=== PATIENT | female | born 2000 | race Two or more races ===

== ENCOUNTER 2019-12-01 15:51 | Emergency (ER) | payer OTHER ==
[2019-12-01 16:20] VITALS: BMI 23.8
[2019-12-01] MEDS ORDERED: ACETAMINOPHEN 500 MG TABLET (FP) PO ONE (17:13)
[2019-12-01] MEDS ORDERED: LACTATED RINGERS SOLUTION 1000 ML INFUS.BAG IV ONE (17:14)
[2019-12-01] MEDS ORDERED: ACETAMINOPHEN INJECTION 100 ML IVPB ONE (17:17)
[2019-12-01] MEDS ORDERED: ACETAMINOPHEN 1000 MG/100 ML VIAL (NON FORMULARY) IVPB ONE (17:20)
--- NOTE | 2019-12-01 17:37 | PDOC ---
History of Present Illness - General Chief Complaint: Lightheaded Stated Complaint: LIGHTHEADED Time Seen by Provider: 12/01/19 16:36 History Source: Patient Exam Limitations: No Limitations - History of Present Illness Initial Comments: 12/01/19 17:32 HISTORY OF PRESENT ILLNESS: 19-year-old woman is currently 16 weeks gestation, primigravida, who presents to the emergency department for evaluation of nausea vomiting and left flank pain. Patient reports she been feeling mildly dizzy which she describes as a room spinning sensation. She reports the dizziness has been intermittent denies presently. Patient endorses having mild dysuria over the past 2 weeks. She denies any vaginal bleeding or vaginal discharge. She denies fevers, chills. No recent travel or sick contacts. PAST MEDICAL HISTORY: Denies past medical history SURGICAL HISTORY: Denies ALLERGIES: No known drug allergies REVIEW OF SYSTEMS General/Constitutional: Denies fever or chills. Denies weakness, weight change. HEENT: Denies change in vision. Denies ear pain or discharge. Denies sore throat. Cardiovascular: Denies chest pain or shortness of breath. Respiratory: Denies cough, wheezing, or hemoptysis. Gastrointestinal: Denies nausea, vomiting, diarrhea or constipation. Denies rectal bleeding. Genitourinary: See HPI Musculoskeletal: Denies joint or muscle swelling or pain. Denies neck or back pain. Skin and breasts: Denies rash or easy bruising. Neurologic: See HPI Psychiatric: Denies depression or anxiety. Endocrine: Denies increased thirst. Denies abnormal weight change. Hematologic/Lymphatic: Denies anemia, easy bleeding, or history of blood clots. Allergic/Immunologic: Denies hives or skin allergy. Denies latex allergy. PHYSICAL EXAM General Appearance: Well-appearing, appropriately dressed. No apparent distress, no intoxication. HEENT: EOMI, PERRLA, normal ENT inspection, normal voice, TMs normal, pharynx normal. No conjunctival pallor. No photophobia, scleral icterus. Respiratory/Chest: Lungs CTAB. No shortness of breath, chest tenderness, respiratory distress, accessory muscle use. No crackles, rales, rhonchi, stridor, wheezing, dullness Cardiovascular: RRR. S1, S2. No JVD, murmur, bradycardia, tachycardia. Gastrointestinal/Abdominal: Normal bowel sounds. Gravid abdomen. No pulsatile mass, guarding, hernia, hepatomegaly, splenomegaly. Musculoskeletal/Extremities: Normal inspection. FROM of all extremities, normal capillary refill. Pelvis Stable. No CVA tenderness. No tenderness to extremities, pedal edema, swelling, erythema or deformity. Neurologic: law secretary II-XII intact. Fully oriented, alert. Appropriate mood/affect. Motor strength 5/5. No appreciable EOM palsy, facial droop or sensory deficit. Normal finger-nose testing. Steady gait. Past History - Medical History Allergies/Adverse Reactions: Allergies Allergy/AdvReac Type Severity Reaction Status Date / Time No Known Allergies Allergy Verified 12/01/19 16:15 Home Medications: Ambulatory Orders Cephalexin Monohydrate [Keflex -] 500 mg PO Q8H #30 capsule 12/01/19 - Reproductive History Is Patient Now?: No - Psycho-Social/Smoking History Smoking History: Never smoked Have you smoked in the past 12 months: No Information on smoking cessation initiated: No - Substance Abuse Hx (Audit-C & DAST Scrn) How often the patient has a drink containing alcohol: Never Score: In Men: 4 or > Positive; In Women: 3 or > Positive: 0 Screen Result (Pos requires Nsg. Audit-10AR): Negative *Physical Exam - Vital Signs Last Vital Signs Temp Pulse Resp BP Pulse Ox 97.8 F 95 H 17 108/67 99 12/01/19 16:15 12/01/19 16:15 12/01/19 16:15 12/01/19 16:15 12/01/19 16:15 ED Treatment Course - LABORATORY CBC & Chemistry Diagram: 12/01/19 17:30 12/01/19 17:30 - RADIOLOGY Radiology Studies Ordered: Category Date Time Status KIDNEY / RENAL US [US] Stat Ultrasound 12/01/19 17:12 Ordered US(SINGLE) [US] Stat Ultrasound 12/01/19 17:12 Ordered - Medications Given in the ED: ED Medications Discontinued Medications Generic Name Dose Route Start Last Admin Trade Name Freq PRN Reason Stop Dose Admin Acetaminophen 975 mg 12/01/19 17:13 12/01/19 17:30 Tylenol - PO 12/01/19 17:14 Not Given ONCE ONE Acetaminophen 1,000 mg 12/01/19 17:20 12/01/19 17:28 Ofirmev Injection - IVPB 12/01/19 17:21 1,000 mg ONCE ONE Administration Lactated Ringer's 1,000 ml 12/01/19 17:14 12/01/19 17:28 Lactated Ringers Solution IV 12/01/19 17:15 1,000 ml ONCE ONE Administration Medical Decision Making - Medical Decision Making 12/01/19 17:34 A/P: 19-year-old woman with left flank pain, nausea, vomiting and dizziness in second trimester of Physical exam is unremarkable Differential diagnosis includes but is not limited to: Pyelonephritis, dehydration, vertigo Labs Urinalysis, urine culture Normal saline 1 L IV bolus Tylenol 1 g IV Obstetrics ultrasound Kidney ultrasound Reassess 12/01/19 19:04 Laboratory Tests 12/01/19 12/01/19 12/01/19 17:30 17:30 18:30 WBC 13.6 H RBC 3.63 Hgb 11.2 Hct 32.4 MCV 89.1 MCH 30.7 MCHC 34.5 RDW 13.2 Plt Count 138 MPV 9.3 Absolute Neuts (auto) 11.3 H Neutrophils % 83.2 H Lymphocytes % 10.7 Monocytes % 4.8 Eosinophils % 1.0 Basophils % 0.3 Nucleated RBC % 0 Platelet Estimate Decreased Platelet Comment No clumping noted Sodium 136 Potassium 5.2 H Chloride 107 Carbon Dioxide 23 Anion Gap 5 L BUN 8.3 Creatinine 0.5 L Est GFR (CKD-EPI)AfAm 161.48 Est GFR (CKD-EPI)NonAf 139.32 Random Glucose 87 Calcium 9.1 Total Bilirubin 0.2 AST 38 H ALT 18 Alkaline Phosphatase 70 Total Protein 7.0 Albumin 3.1 L Urine HCG, Qual Positive Renal ultrasound with minimal right hydronephrosis without obvious calculi. Unremarkable left kidney. Limited ultrasound reveals single live IUP with gestational age 17 weeks with heart rate 139. No abnormalities are noted. Urinalysis pending. 12/01/19 19:26 Laboratory Tests 12/01/19 12/01/19 12/01/19 17:30 17:30 18:20 WBC 13.6 H RBC 3.63 Hgb 11.2 Hct 32.4 MCV 89.1 MCH 30.7 MCHC 34.5 RDW 13.2 Plt Count 138 MPV 9.3 Absolute Neuts (auto) 11.3 H Neutrophils % 83.2 H Lymphocytes % 10.7 Monocytes % 4.8 Eosinophils % 1.0 Basophils % 0.3 Nucleated RBC % 0 Platelet Estimate Decreased Platelet Comment No clumping noted Sodium 136 Potassium 5.2 H Chloride 107 Carbon Dioxide 23 Anion Gap 5 L BUN 8.3 Creatinine 0.5 L Est GFR (CKD-EPI)AfAm 161.48 Est GFR (CKD-EPI)NonAf 139.32 Random Glucose 87 Calcium 9.1 Total Bilirubin 0.2 AST 38 H ALT 18 Alkaline Phosphatase 70 Total Protein 7.0 Albumin 3.1 L Urine Color Yellow Urine Appearance Clear Urine pH 6.0 Ur Specific [place] 1.017 Urine Protein Negative Urine Glucose (UA) Negative Urine Ketones Negative Urine Blood Negative Urine Nitrite Negative Urine Bilirubin Negative Urine Urobilinogen 0.2 Ur Leukocyte Esterase 1+ H Urine WBC (Auto) 45 Urine RBC (Auto) 2 Urine Casts (Auto) 1 U Epithel Cells (Auto) 16 Urine Bacteria (Auto) 94 Urine HCG, Qual 12/01/19 18:30 WBC RBC Hgb Hct MCV MCH MCHC RDW Plt Count MPV Absolute Neuts (auto) Neutrophils % Lymphocytes % Monocytes % Eosinophils % Basophils % Nucleated RBC % Platelet Estimate Platelet Comment Sodium Potassium Chloride Carbon Dioxide Anion Gap BUN Creatinine Est GFR (CKD-EPI)AfAm Est GFR (CKD-EPI)NonAf Random Glucose Calcium Total Bilirubin AST ALT Alkaline Phosphatase Total Protein Albumin Urine Color Urine Appearance Urine pH Ur Specific [place] Urine Protein Urine Glucose (UA) Urine Ketones Urine Blood Urine Nitrite Urine Bilirubin Urine Urobilinogen Ur Leukocyte Esterase Urine WBC (Auto) Urine RBC (Auto) Urine Casts (Auto) U Epithel Cells (Auto) Urine Bacteria (Auto) Urine HCG, Qual Positive Urinalysis suggestive of infection. Will treat patient for pyelonephritis with Keflex 500 mg 3 times daily for the next 10 days. I discussed the physical exam findings, ancillary test results and final diagnoses with the patient. I answered all of the patient's questions. The patient was satisfied with the care received and felt comfortable with the discharge plan and treatment plan. The patient will call their primary care physician within 24 hours to arrange follow-up and will return to the Emergency Department with any new, persistent or worsening symptoms. Portions of this note have been documented using voice recognition software. As a result, errors may occur in the capacitor assembler process. Effort has been made to correct all grammatical and capacitor assembler error, but some may have been missed which may produce sporadic inaccurate capacitor assembler or nonsensical phrases. Discharge - Discharge Information Problems reviewed: Yes Clinical Impression/Diagnosis: Pyelonephritis affecting Qualifiers: Trimester: second trimester Qualified Code(s): O23.02 - Infections of kidney in , second trimester Condition: Fair Disposition: HOME - Admission No - Additional Discharge Information Prescriptions: Cephalexin Monohydrate [Keflex -] 500 mg PO Q8H #30 capsule - Follow up/Referral - Patient Discharge Instructions Additional Instructions: Rest, drink lots of fluids: Teas, water, soups Avoid contact with others until fevers and symptoms resolved Lots of handwashing and good hygiene Continue [id number] medications for symptomatic relief Tylenol for fever and pain Continue all of antibiotics until completed Followup with private physician in one week for repeat urinalysis/reevaluation Return to emergency department for worsened symptoms, fevers, dehydration gamaliel Howell muchos lquidos: Ts, agua, sopas Evite el contacto con otros hasta que las fiebres y los sntomas se resuelvan Un montn de lavado de ki y buena higiene Contine los medicamentos sin receta para el alivio sintomtico Tylenol para la fiebre y el dolor Continuar todos los antibiticos hasta completarse Seguimiento con mdico privado en allan semana para repetir anlisis de orina / reevaluacin Volver al servicio de urgencias por sntomas empeorados, fiebres, deshidratacin - Post Discharge Activity
[2019-12-01 17:46] VITALS: BP 110/59; PULSE 91; TEMP 97.9
[2019-12-01 18:36] LABS: ALBUMIN 3.1 g/dl (3.4-5.0); BILIRUBIN,TOTAL 0.2 mg/dL (0.2-1); BLOOD UREA NITROGEN 8.3 mg/dL (7-18); CALCIUM 9.1 mg/dL (8.5-10.1); CREATININE 0.5 mg/dL (0.55-1.3); POTASSIUM 5.2 mmol/L (3.5-5.1)
[2019-12-01 18:37] LABS: BASO % 0.3 % (0-2.0); HEMATOCRIT 32.4 % (32.4-45.2); HEMOGLOBIN 11.2 GM/dL (10.7-15.3); LYMPH % 10.7 % (8-40); MCH 30.7 pg (25.7-33.7); MCHC 34.5 g/dl (32.0-36.0); MEAN CELL VOLUME 89.1 fl (80-96); MEAN PLT VOLUME 9.3 fl (7.5-11.1); MONO % 4.8 % (3.8-10.2); NEUT % 83.2 % (42.8-82.8); PLATELET COUNT 138 K/MM3 (134-434); PLATELET ESTIMATE DECREASED; RBC 3.63 M/mm3 (3.60-5.2); RDW 13.2 % (11.6-15.6); WHITE BLOOD COUNT 13.6 K/mm3 (4.0-10.0)
[2019-12-01 19:20] LABS: EPI CELLS 16 /uL (0-25.1); HYALINE CASTS 1 /uL (0-3.1); URINE APPEARANCE CLEAR; URINE BACTERIA 94 /uL (0-1359); URINE BILIRUBIN NEGATIVE (NEGATIVE); URINE COLOR YELLOW; URINE GLUCOSE (UA) NEGATIVE (NEGATIVE); URINE KETONE NEGATIVE (NEGATIVE); URINE LEUK ESTERASE 1+ (NEGATIVE); URINE NITRITE NEGATIVE (NEGATIVE); URINE PROTEIN NEGATIVE (NEGATIVE); URINE RBC 2 /uL (0-23.9); URINE UROBILINOGEN 0.2 mg/dL (0.2-1.0); URINE WBC 45 /uL (0-25.8)
== END 2019-12-01 19:47 | disposition home or self-care (01) ==
LOC: JER 15:51
PROC: 3E033NZ Introduction of Analgesics, Hypnotics, Sedatives into Peripheral Vein, Percutaneous Approach (ICD-10-PCS; principal; 2019-12-01)
DX: O23.20 Infections of urethra in pregnancy, unspecified trimester (principal)
CPT/HCPCS: 36415; 76775-TC; 76801-TC; 80053; 81003; 84703; 85025; 87086; 99284-25; J0131